=== PATIENT | female | born 1990 | race African-American/Black ===

== ENCOUNTER 2019-12-11 14:32 | Emergency (ER) | payer MEDICARE, SELFPAY ==
[2019-12-11] VITALS (10 sets, daily range): BP systolic 103–123; BP diastolic 59–83; PULSE 95–116; RESP 16–30; TEMP 36.8–38.1; O2SAT 96–100
--- NOTE | ~2019-12-11 | XR_ITS ---
EXAMINATION: XR chest 1V portable 12/11/2019 15:50 INDICATION: Shortness of breath. Abdominal pain and distention. PROCEDURE: AP portable chest COMPARISON: 06/23/2019 FINDINGS: The lungs are clear. Moderate cardiomegaly. Cannot exclude pericardial effusion. There are no pleural effusions. There is no pneumothorax suspected. IMPRESSION: 1: Enlarged Cardiopericardial silhouette. Cannot exclude pericardial effusion. 2: Otherwise, no acute cardiopulmonary disease. Reviewed, dictated and finalized at location A.
--- NOTE | 2019-12-11 14:58 | ED.ABDPAIN ---
HPI - Abdominal Pain General Chief Complaint: Abdominal Pain Stated Complaint: ABD PAIN/SOB Time Seen by Provider: 12/11/19 14:48 History of Present Illness HPI narrative: Patient is a 29-year-old female who presents the ER with diffuse abdominal pain. Worsening over the last couple days. Associated with abdominal distention and increased shortness of breath. Patient has history of end-stage liver disease and she continues to drink alcohol. Last alcoholic beverage was earlier today. 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 States she is being treated with lactulose. She is not a candidate for liver transplantation. Denies any fevers or chills but upon presentation here today was found to be febrile. Patient cannot describe aggravating or alleviating factors for her shortness of breath or her pain outside of movement, she is not particularly engaged while obtaining HPI. Related Data Home Medications Medication Instructions Recorded Confirmed cholestyramine (with sugar) 4 g PO BID 06/25/19 06/26/19 [Questran] ferrous sulfate 324 mg PO DAILY 06/25/19 06/26/19 folic acid 1 mg PO DAILY 06/25/19 06/26/19 furosemide 20 mg PO DAILY 06/25/19 06/26/19 gabapentin 300 mg PO TID 06/25/19 06/26/19 hydroxyzine HCl 25 - 50 mg PO TID PRN 06/25/19 06/26/19 lactulose 10 g PO QID 06/25/19 06/26/19 multivitamin 1 tablet PO DAILY 06/25/19 06/26/19 pantoprazole 40 mg PO BID 06/25/19 06/26/19 spironolactone 50 mg PO DAILY 06/25/19 06/26/19 thiamine mononitrate (vit B1) 100 mg PO DAILY 06/25/19 06/26/19 Allergies Allergy/AdvReac Type Severity Reaction Status Date / Time ibuprofen Allergy Unknown Hives / Verified 06/22/19 19:11 Red Face Review of Systems Review of Systems: All systems reviewed & are unremarkable except as noted in HPI and below Constitutional: Constitutional: Denies chills, Reports fatigue, Reports fever(s) and Reports weakness ENT: Denies nasal congestion and Denies sore throat Cardiovascular: Cardiovascular: Denies chest pain and Denies radiating jaw, neck or arm pain Respiratory: Respiratory: Denies cough, Reports dyspnea and Denies wheezing Gastrointestinal: Gastrointestinal: Reports abdominal pain, Denies constipation, Denies diarrhea, Denies nausea and Denies vomiting PMFSH Social History Social History (Updated 12/11/19 @ 15:01 by Bear Jacobo MD) Alcohol intake: current Exam Narrative: Exam Narrative: GENERAL: Chronically ill and fatigued-appearing, well-nourished, and in no acute distress. HEAD: Normocephalic, atraumatic. EYES: PERRL and EOMI. significant scleral icterus. Periorbital edema bilaterally. ENT: Mucous membranes moist. CHEST: Clear to auscultation. No respiratory distress. HEART: Tachycardic and regular. Normal peripheral pulses. ABDOMEN: Soft, distended with fluid wave, no point tenderness, no cellulitis/redness to the abdomen. Guaiac negative stool on LUCIA. EXTREMITIES: Normal range of motion. No edema. SKIN: Warm, dry, jaundice noted in the nailbeds and palms, no rash. NEURO: Alert and oriented x3. Course Course Emergency Course: Discussed with Dr. Gutierrez with hepatobiliary, since pt has a fever she will need to be in a covid unit until it can be ruled out. Reports patient has chronically abnormal labs that acutely worsen when drinking. Current MELD Score 25. Repeating h/h and planning for transfusion. He is encouraged by stable renal function. Discussed with hospitalist, accepted under Dr. Magdaleno. They will preform covid test at their facility. Vital Signs Vital signs: Vital Signs Temperature 100.6 F H 12/11/19 14:36 Pulse Rate 110 H 12/11/19 14:36 Respiratory Rate 18 12/11/19 14:36 Blood Pressure 110/68 12/11/19 14:36 Pulse Oximetry 97 12/11/19 14:36 Temperature 100.6 F H 12/11/19 14:36 Pulse Rate 108 H 12/11/19 15:38 Respiratory Rate 18 12/11/19 15:38 Blood Pressure 108/71 12/11/19 15:38 Pulse Oximetry 100 12/11/19 15:38 MDM - Abdomi
[2019-12-11] MEDS: MORPHINE SULFATE 4 MG/ML INJ IV PUSH (15:37)
[2019-12-11 15:41] LABS: INR 2.1; Prothrombin Time 22.8 Seconds (11.1-14.7)
[2019-12-11 15:42] LABS: Partial Thromboplastin Time 49.7 SECONDS (22.3-36.8)
[2019-12-11 15:49] LABS: Alanine Aminotransferase 43 U/L (4-35); Albumin Level 3.2 g/dL (3.5-5.1); Alkaline Phosphatase 174 U/L (38-126); Aspartate Amino Transferase 222 U/L (14-36); Bilirubin,Total 12.3 mg/dL (0.2-1.3); Blood Urea Nitrogen 7 mg/dL (7-17); Calcium 8.3 mg/dL (8.4-10.2); Carbon Dioxide 26 mmol/L (22-30); Chloride 103 mmol/L (98-107); Estimated CRCL calculation 110 ml/min; Estimated Glomerular Filt Rate > 60; Glucose 109 mg/dL (65-105); Lipase 332 U/L (23-300); Potassium 3.5 mmol/L (3.4-5.0); Sodium 136 mmol/L (137-145)
[2019-12-11 15:50] LABS: Ethanol 190 mg/dL (<10)
[2019-12-11 16:18] LABS: Mean Corpuscular Hemoglobin 38.7 pg (26-34); Mean Corpuscular Volume 120.8 fl (80-100); Mean Platelet Volume 10.9 fl (7.4-10.4); Platelet Count Result 29 k/mm3 (150-375); Red Blood Count 1.06 M/mm3 (4.2-5.4); Red Cell Distribution Width 22.4 % (11.5-14.5); White Blood Count 9.4 K/mm3 (4.5-10.0)
[2019-12-11 16:24] LABS: Hemoglobin 4.1 g/dL (12.0-15.0)
[2019-12-11 16:25] LABS: Hematocrit 12.8 % (37.0-47.0)
[2019-12-11 16:26] LABS: Alanine Aminotransferase 43 U/L (4-35); Albumin Level 3.2 g/dL (3.5-5.1); Alkaline Phosphatase 179 U/L (38-126); Ammonia 14 umol/L (9-30); Aspartate Amino Transferase 220 U/L (14-36); Bilirubin Direct 4.6 mg/dL (0-0.3); Bilirubin,Total 12.4 mg/dL (0.2-1.3)
[2019-12-11 16:31] LABS: Eosinophils Absolute Manual 0.18 K/mm3 (0.02-0.5); Eosinophils Percent Manual 2 % (0-4); Lymphocytes Absolute Manual 1.69 K/mm3 (1.1-4.5); Lymphocytes Percent Manual 18 % (18-44); Monocytes Absolute Manual 0.37 K/mm3 (0.1-0.90); Monocytes Percent Manual 4 % (3-9); Neutrophils Percent Manual 76 % (46-73); Platelet Estimate Decreased (Adequate); Total Cells Counted 100
[2019-12-11 16:32] LABS: Anisocytosis 1+ (NORMAL); Ovalocytes 1+ (NORMAL); Target Cells 2+ (NORMAL)
[2019-12-11 16:37] LABS: Add Urine Microscopic? YES; Amorphous Sediment Urine Few; Appearance Urine Clear (Clear); Bacteria Urine Trace /hpf; Bilirubin Urine 2+ (Negative); Blood Urine 3+ (Negative); Color Urine Amber (Yellow); Glucose Urine UA Negative (Negative); Ketones Urine Trace mg/dL (Negative); Leukocyte Esterase Ur Negative LEU/UL (Negative); Mucus Urine Heavy /lpf; Nitrate Urine Negative (Negative); Protein Urine 3+ mg/dL (Negative); RBC Urine 21-50 /hpf (0-2); Specific Grav Ur 1.019 (1.001-1.035); Squamous Epithelial Cell Urine Moderate /hpf (Few)
[2019-12-11] MEDS: TUBING, BLOOD SET 1 EACH XX (17:36)
[2019-12-11] MEDS: SODIUM CHLORIDE 0.9% IV 250 ML 30 ML IV CONT (17:36)
--- NOTE | 2019-12-11 17:37 | PC.NURSE ---
pt 83% on room air, placed on 2 L NC O2 and pulse ox now 96%
--- NOTE | 2019-12-11 20:53 | PC.NURSE ---
patient transfered with blood infusing
--- NOTE | 2019-12-15 10:53 | PC.NURSE ---
late entry from 11-25-2019-- omitted by samira smith. patient transfered with ns and blood infusing. patient received 100cc ns while in er
== END 2019-12-11 20:57 | disposition short-term general hospital (02) ==
PROVIDERS: Emergency Provider Emergency Medicine
DX: K70.9 Alcoholic liver disease, unspecified (principal); D69.6 Thrombocytopenia, unspecified; K65.2 Spontaneous bacterial peritonitis; D64.9 Anemia, unspecified; R50.9 Fever, unspecified; Z20.828 Contact with and (suspected) exposure to other viral communicable diseases; R93.1 Abnormal findings on diagnostic imaging of heart and coronary circulation; F10.20 Alcohol dependence, uncomplicated; Y90.6 Blood alcohol level of 120-199 mg/100 ml
CPT/HCPCS: 36415; 36430; 71045; 80053; 80076; 80307; 81001; 81025; 82140; 83605; 83690; 85025; 85055; 85610; 85730; 86850; 86900; 86901; 86923; 96361; 96365; 96375; 99285; J0696; J2270; J7050; P9016

== ENCOUNTER 2020-02-03 18:24 | Emergency (ER) | payer MEDICARE, SELFPAY ==
--- NOTE | ~2020-02-03 | CT_ITS ---
EXAMINATION: CTA chest PE protocol DATE: 02/03/2020 22:39 INDICATION: Dyspnea. TECHNIQUE: Computed tomography angiography (CTA) of the chest was performed with 100 mL Omnipaque-350 intravenous contrast timed to evaluate the pulmonary arteries. Coronal maximum intensity projection 3D-reconstructions were created by the technologist. Automated exposure control and iterative reconst ruction technique were employed. The dose-length product was 191.23 mGy-cm. COMPARISON: Chest CT 04/02/2019 FINDINGS: There is no pneumonia or pleural effusion. Cardiomegaly is noted. No pericardial effusion. There is no pulmonary embolus. The liver demonstrates a nodular surface contour, consistent with cirr hosis. Splenomegaly is noted, consistent with portal venous hypertension. There is mild thoracic spon dylosis. IMPRESSION: 1. No pulmonary embolus. Sensitivity is moderately decreased by motion artifact. 2. Cardiomegaly. 3. Cirrhosis of the liver with portal venous hypertension. Reviewed, dictated and finalized at location A. IMPRESSION: 1. No pulmonary embolus. Sensitivity is moderately decreased by motion artifact . 2. Cardiomegaly. 3. Cirrhosis of the liver with portal venous hypertension.
--- NOTE | ~2020-02-03 | XR_ITS ---
EXAMINATION: XR chest 1V portable DATE: 02/03/2020 19:19 INDICATION: Dyspnea. Fever. TECHNIQUE: A single frontal view of the chest was obtained. COMPARISON: Chest single view 12/11/2019, CT abdomen and pelvis 08/23/2019 FINDINGS: There is no pneumonia, pleural effusion, or pneumothorax. Cardiomegaly is noted. IMPRESSION: 1. Cardiomegaly. Reviewed, dictated and finalized at location A. IMPRESSION: 1. Cardiomegaly.
[2020-02-03 18:46] VITALS: BP 132/78; PULSE 73; RESP 18; TEMP 36.8; O2SAT 100
[2020-02-03 19:29] LABS: Alveolar/Arterial O2 Gradient 19.3 mmHg; Base Excess ABG 4.9 mEq/l (+/-2.0); Device ROOM AIR; Fractional Inspired Oxygen 21 %; HCO3 ABG 29.7 mEq/l (22.0-26.0); Modified Allen's Test Pass; Oxygen Content ABG 14.9 %vol (16.0-22.0); Oxygen Saturation ABG 95.7 % (95.0-100.0); Oxyhemoglobin 91.2 % THb (90.0-100.0); PCO2 ABG 44.9 mmHg (35.0-45.0); PO2 ABG 76.7 mmHg (80.0-100.0); PO2 FiO2 Ratio Arterial Blood 3.65 %; Site Drawn LEFT RADIAL; Total Hemoglobin 11.6 g/dL (12.0-18.0); pH ABG 7.439 (7.350-7.450)
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
--- NOTE | 2020-02-03 19:38 | ECG_ITS ---
Measurements Intervals [place] Rate: 76 P: 2 MT: 152 QRS: -16 QRSD: 108 T: -7 QT: 434 QTc: 490 Interpretive Statements SINUS RHYTHM BORDERLINE R WAVE PROGRESSION, ANTERIOR LEADS BORDERLINE ST-T WAVE ABNORMALITY- ANTEROLAT/INF LEADS BORDERLINE ECG Electronically Signed On 02-04-2020 7:02:16 CDT by Marshall Phelan D.O.
--- NOTE | 2020-02-03 20:22 | PC.NURSE ---
2003- per [facility] at Crisis, Crisis cannot eval until proven COVID negative
[2020-02-03 20:30] LABS: Basophils Percent Auto 0.3 % (0.2-1.2); Eosinophils Absolute Auto 0.1 K/mm3 (0-0.3); Hematocrit 25.8 % (37.0-47.0); Hemoglobin 9.3 g/dL (12.0-15.0); Immature Granulocyte Absolute 0.02 K/mm3 (0.00-0.031); Immature Granulocyte Percent A 0.3 % (0-0.5); Immature Platelet Fraction Pct 9.2 % (0.9-11.2); Lymphocytes Absolute Auto 1.91 K/mm3 (0.9-3.2); Lymphocytes Percent Auto 27.2 % (18.3-44.2); Mean Corpuscular Hemoglobin 32.6 pg (26-34); Mean Corpuscular Volume 90.5 fl (80-100); Monocytes Absolute Auto 0.4 K/mm3 (0.1-0.6); Monocytes Percent Auto 6.1 % (2.6-8.5); Neutrophils Absolute Auto 4.6 K/mm3 (1.3-6.7); Neutrophils Percent Auto 65.1 % (45.5-73.1); Platelet Count Result 31 k/mm3 (150-375); Red Blood Count 2.85 M/mm3 (4.2-5.4); Red Cell Distribution Width 14.9 % (11.5-14.5)
--- NOTE | 2020-02-03 20:35 | PC.NURSE ---
Called phlebotomy to draw labs after multiple unsuccessful attempts
[2020-02-03 20:40] LABS: INR 2.3; Prothrombin Time 24.4 Seconds (11.1-14.7)
[2020-02-03 20:40] LABS: Ammonia 39 umol/L (9-30)
[2020-02-03 20:41] LABS: Partial Thromboplastin Time 51.6 SECONDS (22.3-36.8)
[2020-02-03 20:42] LABS: Alanine Aminotransferase 75 U/L (4-35); Albumin Level 3.9 g/dL (3.5-5.1); Alkaline Phosphatase 226 U/L (38-126); Aspartate Amino Transferase 222 U/L (14-36); Bilirubin,Total 8.3 mg/dL (0.2-1.3); Blood Urea Nitrogen 6 mg/dL (7-17); Calcium 9.4 mg/dL (8.4-10.2); Carbon Dioxide 31 mmol/L (22-30); Chloride 102 mmol/L (98-107); Estimated CRCL calculation 106 ml/min; Estimated Glomerular Filt Rate > 60; Glucose 117 mg/dL (65-105); Potassium 3.6 mmol/L (3.4-5.0); Sodium 142 mmol/L (137-145)
[2020-02-03 20:43] LABS: D Dimer 3.51 ug/mL (<0.48)
[2020-02-03 20:49] LABS: Lactate Dehydrogenase 728 U/L (313-618)
[2020-02-03 20:58] LABS: Ethanol 407 mg/dL (<10)
[2020-02-03 21:03] LABS: Troponin I 0.016 ng/mL (0.000-0.034)
[2020-02-03] MEDS: ACETAMINOPHEN 500 MG TABLET 1000 MG PO (21:04)
[2020-02-03] MEDS: SODIUM CHLORIDE 0.9% IV 1,000 ML 999 ML IV CONT (21:05)
[2020-02-03 21:40] LABS: Add Urine Microscopic? YES; Appearance Urine Clear (Clear); Bacteria Urine Trace /hpf; Bilirubin Urine 1+ (Negative); Blood Urine 3+ (Negative); Color Urine Amber (Yellow); Glucose Urine UA Negative (Negative); Ketones Urine Negative (Negative); Leukocyte Esterase Ur Negative LEU/UL (Negative); Mucus Urine Rare /lpf; Nitrate Urine Negative (Negative); Protein Urine 3+ mg/dL (Negative); Specific Grav Ur 1.009 (1.001-1.035); Squamous Epithelial Cell Urine Few /hpf (Few); WBC Urine 0-3 /hpf
[2020-02-03 21:42] LABS: Amphetamine Screen Urine Negative (Negative); Barbiturate Screen Urine Negative (Negative); Benzodiazepines Screen Urine Negative (Negative); Cannabinoid Screen Urine Negative (Negative); Cocaine Screen Urine Negative (Negative); Methadone Screen Urine Negative (Negative); Opiate Screen Urine Negative (Negative); Phencyclidine Screen Urine Negative (Negative)
--- NOTE | 2020-02-03 22:54 | PC.NURSE ---
pt asleep, no resp distress, sitter at bedside.
[2020-02-03 23:10] LABS: Ferritin > 2000.00 ng/mL (6.24-137)
--- NOTE | 2020-02-04 00:27 | PC.NURSE ---
pt remains asleep, no resp distress, sitter at bedside.
--- NOTE | 2020-02-04 01:31 | PC.NURSE ---
pt asleep, no resp distress, sitter at bedside.
[2020-02-04 06:22] VITALS: BP 99/57; PULSE 75; RESP 18; TEMP 36.8; O2SAT 98
[2020-02-04 10:58] LABS: Ethanol 173 mg/dL (<10)
--- NOTE | 2020-02-04 11:32 | PC.NURSE ---
PT IN ROOM, CALM AND COOPERATIVE NO NEEDS AT THIS TIME SITTER AT BEDSIDE ETOH LAB BACK PROVIDER AWARE
--- NOTE | 2020-02-04 12:20 | PC.NURSE ---
IN ROOM NO NEEDS AT THIS TIME SITTER AT BEDSIDE
--- NOTE | 2020-02-04 13:09 | PC.NURSE ---
PT HAS SCRIPT FOR NORCO 5-325MG AT [facility]
--- NOTE | 2020-02-04 13:10 | PC.NURSE ---
PT ASKING FOR PAIN MED ORDER RECEIVED AND GIVEN TO THE PT PT IS CALM AND COOPERATIVE SITTER AT BEDSIDE
--- NOTE | 2020-02-04 14:13 | PC.NURSE ---
PT C/.O OF CHEST PAIN EKG DONE PROVIDER AWARE NO OTHER ORDERS AT THIS TIME
--- NOTE | 2020-02-04 14:32 | ECG_ITS ---
Measurements Intervals [place] Rate: 67 P: -4 MN: 139 QRS: -5 QRSD: 114 T: -11 QT: 434 QTc: 461 Interpretive Statements SINUS RHYTHM INTRAVENTRICULAR CONDUCTION DELAY DELAYED PRECORDIAL R/S TRANSITION BORDERLINE ST-T WAVE ABNORMALITY- ANT/INF LEADS BORDERLINE ECG Electronically Signed On 02-04-2020 14:38:15 CDT by Marshall Phelan D.O.
[2020-02-04 16:10] LABS: Ethanol 93 mg/dL (<10)
--- NOTE | 2020-02-04 16:30 | PC.NURSE ---
no behavioral concern calm and cooperative sitter at bedside diet order placed
[2020-02-04 17:25] VITALS: BP 106/66; PULSE 69; RESP 16; O2SAT 100
[2020-02-04 17:27] VITALS: BP 106/66; PULSE 77; TEMP 37.1; O2SAT 100
--- NOTE | 2020-02-04 18:34 | PC.NURSE ---
pt in room, resting, chest rise noted sitter at bedside
--- NOTE | 2020-02-04 20:57 | PC.NURSE ---
decision made to send pt home crisis o present safety plan to pt and family provider agreeable to decision belongings given back to pt
[2020-02-04 20:59] VITALS: BP 136/80; PULSE 88; RESP 16; O2SAT 97
== END 2020-02-04 20:59 | disposition home or self-care (01) ==
PROVIDERS: Emergency Medicine; Emergency Provider General Practice
DX: R45.851 Suicidal ideations (principal); F10.10 Alcohol abuse, uncomplicated; R44.0 Auditory hallucinations; K70.30 Alcoholic cirrhosis of liver without ascites; D64.9 Anemia, unspecified; G62.9 Polyneuropathy, unspecified; I51.7 Cardiomegaly; Y90.8 Blood alcohol level of 240 mg/100 ml or more; R94.31 Abnormal electrocardiogram [ECG] [EKG]; I45.9 Conduction disorder, unspecified
CPT/HCPCS: 36415; 36600; 71045; 71275; 80053; 80307; 81001; 82140; 82728; 82805; 83605; 83615; 84443; 84484; 85025; 85055; 85380; 85610; 85730; 87040; 93005; 96360; 99284; A9270; J7030; Q9967